=== PATIENT | male | born 1965 | race Caucasian/White ===

== ENCOUNTER 2021-10-26 09:37 | Emergency (ER) | payer OTHER, SELFPAY ==
[2021-10-26] VITALS (36 sets, daily range): BP systolic 92–119; BP diastolic 52–74; PULSE 60–72; RESP 17; TEMP 35.8; O2SAT 92–98; BMI 35.7
--- NOTE | 2021-10-26 09:57 | CRLHL7_ITS ---
For Patients: As a result of the Century Cures Act, medical imaging exams and procedure reports are released immediately into your electronic medical record. You may view this report before your referring provider. If you have questions, please contact your health care provider. INDICATION: Chest pain COMPARISON: March 20, 2018 and August 15, 2016 TECHNIQUE: AP portable single view examination FINDINGS: TUBES AND LINES: ICD with leads ending in the right atrium and right ventricle. HEART AND MEDIASTINUM: The heart size is normal. The mediastinal contour appears normal for patient age.Sternotomy LUNGS AND PLEURAL SPACES: Left basilar airspace process similar to 2017 and 2019 with associated elevation of the left hemidiaphragm. This is probably chronic atelectasis and/or scarring. OSSEOUS STRUCTURES: Age-appropriate appearance. No acute focal finding. IMPRESSION: Sternotomy. ICD. Chronic changes at the left base. No acute focal findings when compared to studies dating back to 2017. Dictated by Griffin Julian MD @ 10/26/2021 10:24:53 AM (Electronically Signed)
--- NOTE | 2021-10-26 10:21 | ED.GENADULT ---
HPI - General Adult General Time Seen by Provider: 10:22 Date Seen: 10/26/21 Chief complaint: Chest Pain Stated complaint: Cardiac Time Seen by Provider: 10/26/21 09:45 Source: patient Mode of arrival: ambulatory Limitations: no limitations History of Present Illness HPI narrative: Patient is a 48 year white male who is extremely unhealthy with an AICD, 34 stents for coronary artery disease, status post coronary bypass, AICD implantation for V-tach. The patient has known ischemic cardiomyopathy. He has had his stents at [facility] in [place], [facility]. He is a patient of Dr. Fontenot [facility] in [place]. He denies fever chills, shortness of breath, he reports he has had chronic chest pain, but he seems it is a little bit worse right now. He denies fever chills as mention. He has had a non ST-elevation coronary infarction as well. He denies leg swelling or edema, he is on disability. Due to his cardiac issue is he has not been on the disability. Past medical history: Fibromyalgia, hypothyroidism, hyperlipidemia contact, chronic airway obstruction, tobacco use, COPD, kidney stones, depression, agoraphobia with panic, esophageal reflux, coronary artery disease status post CABG, status post multiple stenting he reports 34 stents, bronchitis, hypertension, posttraumatic stress disorder, AICD, type 2 diabetes, community-acquired pneumonia, chronic headaches, obstructive sleep apnea, ischemic cardiomyopathy, chronic chest pain, chronic systolic heart failure, paroxysmal ventricular tachycardia, history of non ST elevation [place]. Family history is unremarkable for chronic illness Social history patient lives in [place], sees with Dr. Fontenot at the [facility] Related Data Home Medications Medication Instructions Recorded Confirmed albuterol sulfate 90 mcg/actuation inhalation 10/26/21 aerosol inhaler amitriptyline 25 mg tablet mg 10/26/21 atorvastatin 80 mg tablet mg 10/26/21 buspirone 30 mg tablet mg 10/26/21 clopidogrel 75 mg tablet mg 10/26/21 duloxetine 60 mg capsule,delayed mg PO 10/26/21 release ezetimibe 10 mg tablet mg 10/26/21 finasteride 5 mg tablet mg 10/26/21 fluticasone furoate 200 inhalation 10/26/21 mcg-vilanterol 25 mcg/dose inhalation powder (Breo Ellipta) furosemide 20 mg tablet mg 10/26/21 isosorbide mononitrate 30 mg mg PO 10/26/21 tablet,extended release 24 hr levothyroxine 137 mcg tablet mcg 10/26/21 (Euthyrox) linaclotide 145 mcg capsule mcg 10/26/21 (Linzess) lisinopril 10 mg tablet mg 10/26/21 metformin 500 mg tablet,extended mg PO 10/26/21 release 24 hr metoprolol succinate 50 mg mg PO 10/26/21 tablet,extended release 24 hr mexiletine 150 mg capsule mg 10/26/21 montelukast 10 mg tablet mg 10/26/21 nitroglycerin 400 mcg/spray 10/26/21 translingual pantoprazole 40 mg tablet,delayed mg PO 10/26/21 release pramipexole 0.125 mg tablet mg 10/26/21 ranolazine 1,000 mg mg PO 10/26/21 tablet,extended release,12 hr spironolactone 25 mg tablet mg 10/26/21 tamsulosin 0.4 mg capsule mg PO 10/26/21 tramadol 50 mg tablet mg 10/26/21 Allergies Allergy/AdvReac Type Severity Reaction Status Date / Time cat dander Allergy Verified 10/26/21 09:51 Latex, Natural Rubber Allergy Verified 10/26/21 09:51 niacin Allergy Verified 10/26/21 09:51 umeclidinium Allergy Verified 10/26/21 09:51 [From Incruse Ellipta] Review of Systems Status of ROS: Reports: 10 or more systems reviewed and unremarkable except as noted in History and below PFSH PFSH Social History Smoking Status: Current some day smoker What tobacco products do you use: cigarettes Do you use any of these nicotine containing products: None Second hand tobacco smoke exposure: No How often do you have a drink containing alcohol: 2-3 times a week How many standard drinks containing alcohol do you have on a typical day: 3 or 4 How often do you have six or more drinks on one occasion: Never AUDIT-C Alcohol total score: 4 Non-prescribed substance use: marijuana (any form) Exam Narrative: Exam Narrative: Objective: Patient is alert orient x3, noncyanotic, obese Vital signs are unremarkable, O2 sat 96% on room air HEENT is unremarkable no scleral icterus, no facial asymmetry Neck is supple Chest is clear no rales or wheezing Heart rate and rhythm regular with 2/6 systolic ejection murmur, occasional ectopic beat Abdomen is soft benign, he has got multiple scars over his upper abdomen and chest consistent with his prior surgeries. Extremities are no edema Neurologic nonfocal Periphery shows good perfusion EKG by my read shows normal sinus rhythm non specific interventricular conduction block Q-waves inferiorly some flattening of the T-waves laterally this is fairly consistent with prior EKGs Const: Vital Signs, click to edit/add: Vital Signs - 24 hr 10/26/21 09:47 10/26/21 09:54 10/26/21 09:55 Temperature 96.5 F L Pulse Rate 69 69 Pulse Rate [Right Pulse Oximeter] 70 Respiratory Rate 17 Blood Pressure 98/57 L Blood Pressure [Le ft Upper Arm] 106/59 L Pulse Oximetry 96 94 94 [facility] 10/26/21 10:12 10/26/21 10:13 10/26/21 10:15 Temperature Pulse Rate 69 72 65 Pulse Rate [Right Pulse Oximeter] Respiratory Rate Blood Pressure 104/52 L Blood Pressure [Le ft Upper Arm] Pulse Oximetry 94 94 95 Oxygen Delivery Or thod 10/26/21 10:16 10/26/21 10:31 10/26/21 10:32 Temperature Pulse Rate 64 65 66 Pulse Rate [Right Pulse Oximeter] Respiratory Rate Blood Pressure 117/64 119/73 Blood Pressure [Le ft Upper Arm] Pulse Oximetry 96 94 95 Oxygen Delivery Or thod 10/26/21 10:46 10/26/21 10:47 10/26/21 11:01 Temperature Pulse Rate 67 67 64 Pulse Rate [Right Pulse Oximeter] Respiratory Rate Blood Pressure 96/64 107/72 Blood Pressure [Le ft Upper Arm] Pulse Oximetry 93 92 93 Oxygen Delivery Or thod 10/26/21 11:02 10/26/21 11:16 10/26/21 11:17 Temperature Pulse Rate 69 62 62 Pulse Rate [Right Pulse Oximeter] Respiratory Rate Blood Pressure 101/67 Blood Pressure [Le ft Upper Arm] Pulse Oximetry 94 95 96 Oxygen Delivery Or thod 10/26/21 11:30 10/26/21 11:32 10/26/21 11:45 Temperature Pulse Rate 61 61 60 Pulse Rate [Right Pulse Oximeter] Respiratory Rate Blood Pressure 104/63 Blood Pressure [Le ft Upper Arm] Pulse Oximetry 94 93 94 Oxygen Delivery Me thod 10/26/21 11:46 10/26/21 11:47 10/26/21 12:00 Temperature Pulse Rate 60 60 66 Pulse Rate [Right Pulse Oximeter] Respiratory Rate Blood Pressure 115/74 Blood Pressure [Le ft Upper Arm] Pulse Oximetry 98 95 95 Oxygen Delivery Me thod 10/26/21 12:02 10/26/21 12:15 10/26/21 12:16 Temperature Pulse Rate 65 60 60 Pulse Rate [Right Pulse Oximeter] Respiratory Rate Blood Pressure 93/57 L 109/62 Blood Pressure [Le ft Upper Arm] Pulse Oximetry 95 98 96 Oxygen Delivery Me thod 10/26/21 12:30 10/26/21 12:32 10/26/21 12:33 Temperature Pulse Rate 61 60 60 Pulse Rate [Right Pulse Oximeter] Respiratory Rate Blood Pressure 103/62 Blood Pressure [Le ft Upper Arm] Pulse Oximetry 97 96 97 Oxygen Delivery Me thod 10/26/21 12:45 10/26/21 12:47 10/26/21 13:00 Temperature Pulse Rate 60 60 64 Pulse Rate [Right Pulse Oximeter] Respiratory Rate Blood Pressure 101/67 Blood Pressure [Le ft Upper Arm] Pulse Oximetry 92 96 94 Oxygen Delivery Me thod 10/26/21 13:03 10/26/21 13:15 10/26/21 13:16 Temperature Pulse Rate 61 64 63 Pulse Rate [Right Pulse Oximeter] Respiratory Rate Blood Pressure 92/59 L 98/66 Blood Pressure [Le ft Upper Arm] Pulse Oximetry 98 95 98 Oxygen Delivery Me thod 10/26/21 13:17 10/26/21 13:30 10/26/21 13:31 Temperature Pulse Rate 60 60 60 Pulse Rate [Right Pulse Oximeter] Respiratory Rate Blood Pressure 109/66 Blood Pressure [Le ft Upper Arm] Pulse Oximetry 97 96 96 Oxygen Delivery Me thod Course Vital Signs Vital signs: Initial Vital Signs Temperature 96.5 F L 10/26/21 09:47 Temperature Source Temporal Artery Scan 10/26/21 09:47 Pulse Rate 70 10/26/21 09:47 Respiratory Rate 17 10/26/21 09:47 Blood Pressure 106/59 L 10/26/21 09:47 Blood Pressure Mean 74 10/26/21 09:47 Blood Pressure Position Supine 10/26/21 09:47 Pulse Oximetry 96 10/26/21 09:47 Oxygen Delivery Method 10/26/21 09:47 Vital Signs Temperature 96.5 F L 10/26/21 09:47 Pulse Rate 70 10/26/21 09:47 Respiratory Rate 17 10/26/21 09:47 Blood Pressure 106/59 L 10/26/21 09:47 Pulse Oximetry 96 10/26/21 09:47 Oxygen Delivery Method 10/26/21 09:47 Temperature 96.5 F L 10/26/21 09:47 Pulse Rate 60 10/26/21 13:31 Respiratory Rate 17 10/26/21 09:47 Blood Pressure 109/66 10/26/21 13:31 Pulse Oximetry 96 10/26/21 13:31 Oxygen Delivery Method 10/26/21 09:47 Medical Decision Making MDM Narrative Medical decision making narrative: Patient is a complex cardiac patient, in general medical patient. He has chronic chest pain but reports that is may be a little more than normal. He denies trauma injury denies shortness of breath denies diaphoresis or nausea. He has had stenting done at [facility]. Due to staffing shortage is, there are no available beds in the [facility] or [facility], [facility], including [facility], [facility], [facility], [facility], [facility], etc.. There really is no place to transfer this patient. However he may not need transfer currently does have chronic chest pain he does have coronary disease of course but will do serial troponins here in the ED disposition pending findings. Patient comfortable this plan. Addendum: Patient's initial troponin is negative his EKG does not look markedly different from what is described in the past he has got no obvious ischemic changes that a sound different from prior EKG. The patient is asymptomatic at this time. He has had chronic chest pain, his pain is gone. Will repeat a troponin level if this is normal, given his chest x-ray by my read that is unremarkable I think we can let him go home. He does have a positive COVID test although he is fairly asymptomatic, and reports that he does not really travel or go anywhere. He has had no leg swelling or edema he has had no bleeding or clotting problems. Given the complexity of all as medications including blood thinners, I do not think starting any antiviral medicines appropriate would simply observe. Update regular doctor in the next 48 hours, light activity, continue his present medications at home. And return to ED as needed. The patient also now is asymptomatic, with an O2 sat 98% on room air, I do not believe this would indicate any pulmonary injury or pulmonary embolus situation. Certainly Mr. Downey is a very complex medical patient and has marked morbidity, but I think at this point if is negative troponin is repeated, he can return home light activity, rest and continue home medications. He does have chronic chest pain. The patient's 2nd troponin is negative he feels asymptomatic, he will be discharged to home, continue home medicines follow up with primary care as directed, update primary care in the next 2 days with symptoms. Addendum: Upon discharge patient reported he had some pain in his anterior hip on the right kg would shoot down his thigh, he has no tenderness or swelling in his leg I am able to fully flex and extend his hip he has a negative Homans sign, he has no swelling of the ankle leg or thigh, no palpable venous cords. Again I am able to flex and extend his hip and internally and externally rotate it. He certainly could have radicular component here but I do not believe he has DVT or other abnormality would recommend simply observation and time I am uncertain if this is related to COVID but I again I do not believe he has a DVT. Lab Data Labs: Lab Results 10/26/21 10/26/21 10/26/21 Range/Units 10:05 10:05 10:05 WBC 6.69 (4.50-11.00) K/uL RBC 4.52 (4.30-5.90) m/uL Hgb 13.6 (13.5-17.5) gm/dL Hct 40.4 (37.0-53.0) % MCV 89 (80-100) fL MCH 30 (26-34) pg MCHC 34 (32-36) gm/dL RDW Coeff of [place] 13.9 (11.5-15.5) % Plt Count 181 (140-440) K/uL Neut % (Auto) 81.8 H (42.0-72.0) % Lymph % (Auto) 6.3 L (20-44) % [place] % (Auto) 10.9 (0.0-11.0) % Eos % (Auto) 0.3 (0.0-7.0) % Baso % (Auto) 0.3 (0.0-3.0) % Neut # (Auto) 5.50 (1.7-7.0) K/uL Lymph # (Auto) 0.40 L (0.90-2.90) K/uL [place] # (Auto) 0.70 (0.00-0.90) K/UL Eos # (Auto) 0.02 (0.00-0.50) K/uL Baso # (Auto) 0.02 (0.00-0.30) K/uL Abs Immat Gran (auto) 0.03 (0.00-0.30) K/uL INR 1.00 (0.91-1.10) APTT 32 (23-33) Seconds Sodium 134 L (135-149) mmol/L Potassium 3.9 (3.6-5.1) mmol/L Chloride 102 (96-114) mmol/L Carbon Dioxide 22 (20-32) mmol/L BUN 17 (7-30) mg/dL Creatinine 0.7 (0.5-1.5) mg/dL Estimated Creat Clear 107.54 Estimated GFR 107 ml/min Glucose 139 H (60-115) mg/dL Lactate (0.5-1.9) mmol/L Calcium 8.6 (8.4-10.6) mg/dL Total Bilirubin 0.2 (0.1-1.5) mg/dL Direct Bilirubin 0.1 (0.0-0.5) mg/dL AST 33 (12-35) U/L ALT 32 (4-50) U/L Alkaline Phosphatase 70 (40-150) U/L Troponin I < 0.01 L (0.01-0.04) ng/mL C-Reactive Protein 1.7 H (0.5-1.0) mg/dL NT-Pro-B Natriuret Pep 242 H (0-125) PG/mL Total Protein 6.4 (6.0-8.3) g/dL Albumin 4.1 (3.3-5.0) g/dL Ethyl Alcohol < 0.01 L (0.01-0.03) % SARS-CoV-2 (PCR) (Negative) 10/26/21 10/26/21 10/26/21 Range/Units 10:05 10:12 12:28 WBC (4.50-11.00) K/uL RBC (4.30-5.90) m/uL Hgb (13.5-17.5) gm/dL Hct (37.0-53.0) % MCV (80-100) fL MCH (26-34) pg MCHC (32-36) gm/dL RDW Coeff of [place] (11.5-15.5) % Plt Count (140-440) K/uL Neut % (Auto) (42.0-72.0) % Lymph % (Auto) (20-44) % [place] % (Auto) (0.0-11.0) % Eos % (Auto) (0.0-7.0) % Baso % (Auto) (0.0-3.0) % Neut # (Auto) (1.7-7.0) K/uL Lymph # (Auto) (0.90-2.90) K/uL [place] # (Auto) (0.00-0.90) K/UL Eos # (Auto) (0.00-0.50) K/uL Baso # (Auto) (0.00-0.30) K/uL Abs Immat Gran (auto) (0.00-0.30) K/uL INR (0.91-1.10) APTT (23-33) Seconds Sodium (135-149) mmol/L Potassium (3.6-5.1) mmol/L Chloride (96-114) mmol/L Carbon Dioxide (20-32) mmol/L BUN (7-30) mg/dL Creatinine (0.5-1.5) mg/dL Estimated Creat Clear Estimated GFR ml/min Glucose (60-115) mg/dL Lactate 2.5 H (0.5-1.9) mmol/L Calcium (8.4-10.6) mg/dL Total Bilirubin (0.1-1.5) mg/dL Direct Bilirubin (0.0-0.5) mg/dL AST (12-35) U/L ALT (4-50) U/L Alkaline Phosphatase (40-150) U/L Troponin I < 0.01 L (0.01-0.04) ng/mL C-Reactive Protein (0.5-1.0) mg/dL NT-Pro-B Natriuret Pep (0-125) PG/mL Total Protein (6.0-8.3) g/dL Albumin (3.3-5.0) g/dL Ethyl Alcohol (0.01-0.03) % SARS-CoV-2 (PCR) POSITIVE SARS-CoV-2 A (Negative) Discharge Plan Discharge Clinical Impression: Coronary artery disease, Chest pain, COVID Patient Disposition: Home w/ Parent or Adult Condition: Improved Additional Instructions: Continue home medications, update primary care in the next 48 hours, light activity, return problems or concerns sooner. Activity Level: Light activity Discharge Diet: Diabetic and Heart Healthy (2 gm sodium, low fat) Prescriptions: No Action levothyroxine [Euthyrox] 137 mcg tablet Label Comments: TAKE 1 TABLET BY MOUTH BEFORE BREAKFAST atorvastatin 80 mg tablet Label Comments: TAKE 1 TABLET BY MOUTH AT BEDTIME metoprolol succinate 50 mg tablet extended release 24 hr PO Label Comments: TAKE 1 TABLET BY MOUTH ONCE DAILY isosorbide mononitrate 30 mg tablet extended release 24 hr PO Label Comments: TAKE 1 & 1/2 (ONE & ONE-HALF) TABLETS BY MOUTH ONCE DAILY clopidogrel 75 mg tablet Label Comments: TAKE 1 TABLET BY MOUTH IN THE MORNING tramadol 50 mg tablet Label Comments: TAKE 1 TABLET BY MOUTH THREE TIMES DAILY NEEDED FOR PAIN spironolactone 25 mg tablet Label Comments: TAKE 1 TABLET BY MOUTH IN THE MORNING amitriptyline 25 mg tablet Label Comments: TAKE 1 TABLET BY MOUTH AT BEDTIME tamsulosin 0.4 mg capsule PO Label Comments: TAKE 1 CAPSULE BY MOUTH ONCE DAILY AFTER A MEAL mexiletine 150 mg capsule Label Comments: TAKE 1 CAPSULE BY MOUTH EVERY 8 HOURS pantoprazole 40 mg tablet,delayed release (DR/EC) PO Label Comments: TAKE 1 TABLET BY MOUTH TWICE DAILY BEFORE MEAL(S) buspirone 30 mg tablet Label Comments: TAKE 1 TABLET BY MOUTH TWICE DAILY lisinopril 10 mg tablet Label Comments: TAKE 1 TABLET BY MOUTH TWICE DAILY nitroglycerin 400 mcg/spray spray,non-aerosol Label Comments: PLACE 1 SPRAY UNDER THE TONGUE EVERY 5 MINUTES IF NEEDED FOR CHEST PAIN pramipexole 0.125 mg tablet Label Comments: TAKE 1 TABLET BY MOUTH AT BEDTIME FOR 10 DAYS & THEN 2 TABLETS AT BEDTIME FOR 10 DAYS montelukast 10 mg tablet furosemide 20 mg tablet Label Comments: Take 1 tablet by mouth once daily. For a weight gain of 3lbs in a day or 5lbs in a week. albuterol sulfate 90 mcg/actuation HFA aerosol inhaler INHALATION Label Comments: INHALE 1 TO 2 PUFFS BY MOUTH EVERY 4 HOURS NEEDED FOR SHORTNESS OF BREATH metformin 500 mg tablet extended release 24 hr PO Label Comments: TAKE 1 TABLET BY MOUTH ONCE DAILY WITH EVENING MEAL finasteride 5 mg tablet ezetimibe 10 mg tablet duloxetine 60 mg capsule,delayed release(DR/EC) PO Label Comments: TAKE 2 CAPSULES BY MOUTH ONCE DAILY ranolazine 1,000 mg tablet extended release 12 hr PO Label Comments: TAKE 1 BY MOUTH TWICE DAILY Linzess 145 mcg capsule fluticasone furoate-vilanterol [Breo Ellipta] 200-25 mcg/dose blister with device INHALATION Label Comments: INHALE 1 PUFF BY MOUTH ONCE DAILY Follow Up/Referrals: Jc Fontenot MD [Primary Care Provider] - Stand Alone Forms: [employer] Info Instructions
[2021-10-26 10:23] LABS: Lactate* 2.5 mmol/L (0.5-1.9)
[2021-10-26] MEDS: ASPIRIN 81 MG TAB.CHEW 324 MG PO (10:23)
[2021-10-26] MEDS: 0.9 % SODIUM CHLORIDE 1000 ml 1,000 ML 6000 ML IV (10:24)
[2021-10-26 10:26] LABS: Basophils Absolute Auto 0.02 K/uL (0.00-0.30); Basophils Percent Auto 0.3 % (0.0-3.0); Eosinophils Absolute Auto 0.02 K/uL (0.00-0.50); Eosinophils Percent Auto 0.3 % (0.0-7.0); Hematocrit 40.4 % (37.0-53.0); Hemoglobin* 13.6 gm/dL (13.5-17.5); Immature Granulocytes Abs Auto 0.03 K/uL (0.00-0.30); Lymphocytes Percent Auto 6.3 % (20-44); Mean Corpuscular HGB Conc 34 gm/dL (32-36); Mean Corpuscular Hemoglobin 30 pg (26-34); Mean Corpuscular Volume 89 fL (80-100); Monocytes Percent Auto 10.9 % (0.0-11.0); Neutrophils Percent Auto 81.8 % (42.0-72.0); Platelet Count* 181 K/uL (140-440); RDW Coefficient of Variation % 13.9 % (11.5-15.5); Red Blood Count 4.52 m/uL (4.30-5.90); White Blood Count* 6.69 K/uL (4.50-11.00)
[2021-10-26 10:27] LABS: Slide Review Reflex No
[2021-10-26] MEDS: MORPHINE 4 MG/ML INJ IVP (10:31)
[2021-10-26] MEDS: NITROGLYCERIN 0.4 MG TAB.SUBL SUBLINGUAL (10:40)
[2021-10-26 10:41] LABS: Albumin* 4.1 g/dL (3.3-5.0); Chloride* 102 mmol/L (96-114); Sodium* 134 mmol/L (135-149)
[2021-10-26 10:42] LABS: Potassium* 3.9 mmol/L (3.6-5.1)
[2021-10-26 10:43] LABS: Prothrombin Time 13.6 Seconds
[2021-10-26 10:44] LABS: Creatinine* 0.7 mg/dL (0.5-1.5); Est. Creatinine Clearance* 107.54; Estimated Glomerular Filt Rate 107 ml/min; Partial Thromboplastin Time* 32 Seconds (23-33)
[2021-10-26 10:45] LABS: Alanine Aminotransferase* 32 U/L (4-50); Alkaline Phosphatase* 70 U/L (40-150); Aspartate Amino Transferase* 33 U/L (12-35); Bilirubin Direct* 0.1 mg/dL (0.0-0.5); Bilirubin Total* 0.2 mg/dL (0.1-1.5); Blood Urea Nitrogen* 17 mg/dL (7-30); Calcium* 8.6 mg/dL (8.4-10.6); Carbon Dioxide* 22 mmol/L (20-32); Glucose* 139 mg/dL (60-115); Total Protein* 6.4 g/dL (6.0-8.3)
[2021-10-26 10:48] LABS: C Reactive Protein* 1.7 mg/dL (0.5-1.0)
[2021-10-26 10:50] LABS: Ethanol* < 0.01 % (0.01-0.03)
--- NOTE | 2021-10-26 10:50 | ED.NURSE ---
Pt states no change in chest pain after nitro administration. Pt does report headache now.
[2021-10-26 10:54] LABS: NT Pro B Type NatriureticPept* 242 PG/mL (0-125)
[2021-10-26 11:01] LABS: Troponin I* < 0.01 ng/mL (0.01-0.04)
--- NOTE | 2021-10-26 11:04 | ED.NURSE ---
Pt complaining of sharp/shooting pain in his R thigh that is new as of yesterday. MD notified.
[2021-10-26 11:07] LABS: SARS PCR* POSITIVE SARS-CoV-2 (Negative)
[2021-10-26] MEDS: 0.9 % SODIUM CHLORIDE 500 ML 500 ML IV (11:18)
[2021-10-26 13:19] LABS: Troponin I* < 0.01 ng/mL (0.01-0.04)
--- NOTE | 2021-10-26 13:40 | ED.NURSE ---
DC instructions provided. Pt wondering about his leg pain and wanting to speak with MD about R leg pain. MD Pena notified. MD Pena entered RM for exam of leg, cleared pt for DC.
== END 2021-10-26 13:50 | disposition home or self-care (01) ==
PROVIDERS: Emergency Provider Family Medicine; PCP Family Medicine
DX: R07.9 Chest pain, unspecified (principal); I25.10 Atherosclerotic heart disease of native coronary artery without angina pectoris; U07.1 COVID-19; I25.2 Old myocardial infarction; Z95.1 Presence of aortocoronary bypass graft; M25.551 Pain in right hip
CPT/HCPCS: 36415; 71045; 80048; 80076; 82077; 83605; 83880; 84484; 85025; 85610; 85730; 86140; 87635; 93005; 96361; 96374; 99284; 99285; A9270; J2270; J7030; J7120